=== PATIENT | female | born 1940 | race Caucasian/White ===

== ENCOUNTER 2021-06-04 15:24 | Emergency (ER) | payer OTHER, MEDICARE ==
[~2021-06-04 15:24] MED LIST: ASPIRIN325 MG PO; ATORVASTATIN CA80 MG PO; CETIRIZINE HCL10 MG PO; HCTZ25 MG PO; ISOSORBIDE MON120 MG PO; LEVOTHYROXINE100 MCG PO; MELOXICAM15 MG PO; METOPROLOL SUC100 MG PO; MONTELUKAST SOD10 MG PO; PERCOCET 5-3251 EACH PO; PHENERGAN12.5 M1 PO; PLAVIX75 MG PO; POTASSIUM CHLO10 ME1 PO; ZANTAC150 MG PO
== END 2021-06-04 19:52 | disposition home or self-care (01) ==
LOC: FER 15:24
DX: S13.4XXA Sprain of ligaments of cervical spine, initial encounter (principal); S80.02XA Contusion of left knee, initial encounter; S80.01XA Contusion of right knee, initial encounter; I10 Essential (primary) hypertension; Z79.02 Long term (current) use of antithrombotics/antiplatelets; Z79.82 Long term (current) use of aspirin; Z88.0 Allergy status to penicillin; W18.09XA Striking against other object with subsequent fall, initial encounter; Y92.009 Unspecified place in unspecified non-institutional (private) residence as the place of occurrence of the external cause
CPT/HCPCS: 70450; 72125; 73080; 73564

== ENCOUNTER 2021-10-04 17:47 | Emergency (ER) | payer OTHER, MEDICARE ==
[2021-10-04] MEDS ORDERED: NORCO 5-325 TA1 EACH PO (20:23)
== END 2021-10-04 22:05 | disposition home or self-care (01) ==
LOC: FER 17:47
DX: S00.03XA Contusion of scalp, initial encounter (principal); M25.512 Pain in left shoulder; M25.522 Pain in left elbow; I25.10 Atherosclerotic heart disease of native coronary artery without angina pectoris; I10 Essential (primary) hypertension; Z88.0 Allergy status to penicillin; Z95.5 Presence of coronary angioplasty implant and graft; Z95.1 Presence of aortocoronary bypass graft; W01.0XXA Fall on same level from slipping, tripping and stumbling without subsequent striking against object, initial encounter; Y92.009 Unspecified place in unspecified non-institutional (private) residence as the place of occurrence of the external cause
CPT/HCPCS: 70450; 72125; 73030; 73080